=== PATIENT | male | born 1975 | race African-American/Black ===

== ENCOUNTER 2018-01-07 11:35 | Emergency (ER) | payer OTHER, SELFPAY ==
[2018-01-07] MEDS ORDERED: Ketorolac Tromethamine 30 MG/ML VIAL ONE (12:15)
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
== END 2018-01-07 13:02 | disposition home or self-care (01) ==
LOC: ERS 11:35
DX: S43.401A Unspecified sprain of right shoulder joint, initial encounter (principal); S20.211A Contusion of right front wall of thorax, initial encounter; Z87.891 Personal history of nicotine dependence; V49.9XXA Car occupant (driver) (passenger) injured in unspecified traffic accident, initial encounter
CPT/HCPCS: 71046; 96372; J1885

== ENCOUNTER 2019-07-19 04:04 | Emergency (ER) | payer SELFPAY | END 2019-07-19 05:15 | disposition home or self-care (01) | LOC: ERS 04:04 | DX: G93.2 Benign intracranial hypertension (principal); K08.89 Other specified disorders of teeth and supporting structures; Z87.891 Personal history of nicotine dependence; Z79.899 Other long term (current) drug therapy | CPT/HCPCS: 99283 ==

== ENCOUNTER 2019-11-07 09:30 | Emergency (ER) | payer SELFPAY ==
[2019-11-07 10:27] LABS: #Basophils 0.1 thou/uL (0.0-0.2); #Eosinphils 0.1 thou/uL (0.0-0.7); #Lymphocytes 2.5 thou/uL (1.20-3.40); #Monocytes 0.5 thou/uL (0.11-0.59); #Neutrophils 4.2 thou/uL (1.40-6.50); %Eosinophils 1.9 % (0.0-10.0); %Lymphocytes 33.9 % (21.0-51.0); %Monocytes 6.5 % (0.0-10.0); %Neutrophils 56.6 % (42.0-75.0); Hemoglobin 14.3 g/dL (14.0-18.0); Mean Corpuscular HGB CONC 31.7 g/dL (32.0-36.0); Mean Corpuscular Hemoglobin 27.4 pg (27.0-31.0); Mean Corpuscular Volume 86.5 fL (78.0-98.0); Mean Platelet Volume 6.4 fL (7.4-10.4); Platelet Count 478 thou/uL (130-400); RBC Distribution Width 14.4 % (11.5-14.5); Red Blood Cell (RBC) Count 5.21 mill/uL (4.70-6.10); White Blood Cell (WBC) Count 7.3 thou/uL (4.8-10.8)
--- NOTE | 2019-11-07 10:38 | RAD ---
EXAM: CHEST ONE VIEW HISTORY: Lightheadedness and hypertension. COMPARISON: 01/07/2018 FINDINGS: Cardiac silhouette is magnified by projection but stable in size. Pulmonary vasculature is within nor mal limits The lungs are clear. The osseous structures are intact. Chest is stable compared to prior study. IMPRESSION: No acute cardiopulmonary process.
[2019-11-07 10:58] LABS: ALT (SGPT) 24 U/L (8-55); AST (SGOT) 20 U/L (5-34); Albumin 4.3 g/dL (3.5-5.0); Alkaline Phosphatase 107 U/L (40-110); Anion Gap 16 mmol/L (10-20); BUN (Urea Nitrogen) 8 mg/dL (8.9-20.6); Bilirubin, Total 0.4 mg/dL (0.2-1.2); Calc. Creatinine Clearance 0 mL/min (70-130); Calcium 10.2 mg/dL (7.8-10.44); Carbon Dioxide 30 mmol/L (22-29); Chloride 98 mmol/L (98-107); Estimated GFR-MDRD Greater than 90; Globulin 4.5 g/dL (2.4-3.5); Glucose 141 mg/dL (70-105); Potassium 4.9 mmol/L (3.5-5.1); Protein, Total 8.8 g/dL (6.0-8.3); Sodium 139 mmol/L (136-145)
[2019-11-07] MEDS ORDERED: Furosemide 40 MG TAB ONE (11:30)
[2019-11-07] MEDS ORDERED: Metoprolol Tartrate 25 MG TAB ONE (11:30)
== END 2019-11-07 11:35 | disposition home or self-care (01) ==
LOC: ERS 09:30
DX: I10 Essential (primary) hypertension (principal); Z87.891 Personal history of nicotine dependence; Z79.899 Other long term (current) drug therapy
CPT/HCPCS: 36415; 71045; 80053; 84484; 85025; 93005

== ENCOUNTER 2022-09-05 16:46 | Emergency (ER) | payer BC | END 2022-09-05 18:48 | disposition home or self-care (01) | LOC: ERS 16:46 | DX: S43.402A Unspecified sprain of left shoulder joint, initial encounter (principal); I10 Essential (primary) hypertension; W19.XXXA Unspecified fall, initial encounter; Z87.891 Personal history of nicotine dependence ==

== ENCOUNTER 2022-11-07 08:13 | Outpatient (CLI) | payer BC, OTHER | END 2022-11-07 08:14 | disposition home or self-care (01) | LOC: TBSIIMAG 08:13 | PROVIDERS: ATTEND Neurological Surgery | DX: M48.02 Spinal stenosis, cervical region (principal); Z98.890 Other specified postprocedural states | CPT/HCPCS: 72040 ==

== ENCOUNTER 2022-12-05 19:48 | Emergency (ER) | payer OTHER, BC ==
[2022-12-05] MEDS ORDERED: Ketorolac Tromethamine 30 MG/ML VIAL ONE ×2 (21:26→21:27)
[2022-12-05] MEDS ORDERED: Bacitracin 1 PK ONE (21:27)
== END 2022-12-05 23:43 | disposition home or self-care (01) ==
LOC: ERS 19:48
DX: S39.012A Strain of muscle, fascia and tendon of lower back, initial encounter (principal); M25.562 Pain in left knee; I10 Essential (primary) hypertension; V86.95XA Unspecified occupant of 3- or 4- wheeled all-terrain vehicle (ATV) injured in nontraffic accident, initial encounter; Z87.891 Personal history of nicotine dependence
CPT/HCPCS: 72192; 96372; J1885

== ENCOUNTER 2023-03-06 10:20 | Inpatient (IN) | payer BC, OTHER ==
[2023-03-06 10:58] LABS: #Eosinphils 0.1 thou/uL (0.0-0.7); #Monocytes 0.4 thou/uL (0.11-0.59); #Neutrophils 2.6 thou/uL (1.40-6.50); %Basophils 0.9 % (0.0-1.0); %Eosinophils 2.6 % (0.0-10.0); %Lymphocytes 32.2 % (21.0-51.0); %Monocytes 8.6 % (0.0-10.0); %Neutrophils 55.5 % (42.0-75.0); Hemoglobin 14.2 g/dL (14.0-18.0); Mean Corpuscular HGB CONC 32.3 g/dL (32.0-36.0); Mean Corpuscular Hemoglobin 28.7 pg (27.0-31.0); Mean Corpuscular Volume 89.1 fl (78.0-98.0); Mean Platelet Volume 10.2 fL (7.4-10.4); Platelet Count 467 10x3/uL (130-400); RBC Distribution Width 13.8 % (11.5-14.5); Red Blood Cell (RBC) Count 4.94 mill/uL (4.70-6.10); White Blood Cell (WBC) Count 4.7 10x3/uL (4.8-10.8)
[2023-03-06 11:27] LABS: ALT (SGPT) 25 U/L (8-55); AST (SGOT) 25 U/L (5-34); Albumin 3.9 g/dL (3.5-5.0); Alkaline Phosphatase 84 U/L (40-110); Anion Gap 14 mmol/L (10-20); BUN (Urea Nitrogen) 9 mg/dL (8.9-20.6); Bilirubin, Total 1.2 mg/dL (0.2-1.2); Calc. Creatinine Clearance 0 mL/min (70-130); Calcium 9.2 mg/dL (7.8-10.44); Carbon Dioxide 26 mmol/L (22-29); Chloride 103 mmol/L (98-107); Estimated GFR 86; Globulin 3.8 g/dL (2.4-3.5); Glucose 75 mg/dL (70-105); Potassium 3.5 mmol/L (3.5-5.1); Protein, Total 7.7 g/dL (6.0-8.3); Sodium 139 mmol/L (136-145)
[2023-03-06 13:39] LABS: Bacteria/HPF None Seen HPF (None Seen); Bilirubin Negative (Negative); Blood, Urine Negative (Negative); CAUTI Indications for Culture Alt mental st,lethar; Clarity Turbid (Clear); Glucose, Urine (Dipstick) Normal (Negative); Ketone, Urine 40 mg/dL (Negative); Leukocyte 500 Leu/uL (Negative); Nitrite Negative (Negative); Protein, Urine (Dipstick) 20 mg/dL (Neg-Trace); Specific Gravity, Urine 1.012 (1.002-1.036); Sperm/HPF 4+ HPF (None Seen); Squamous Epithelial 0-3 HPF (0-3); WBC/HPF Greater than 50 HPF (0-3)
[2023-03-06 13:40] LABS: Urine Culture Reflex Yes Yes
[2023-03-06] MEDS ORDERED: Calcium Carbonate 500 MG ChewTAB PO PRN (14:43)
[2023-03-06] MEDS ORDERED: NS 0.9% w/ 20 MEQ KCL 1,000 ML/1,000 ML BAG IV SCH ×2 (15:00→17:08)
[2023-03-06] MEDS ORDERED: Aspirin Chewable 81 MG TAB ONE (15:10)
[2023-03-06] MEDS ORDERED: cefTRIAXone (ROCEPHIN) 2 GM VIAL ONE (15:10)
[2023-03-06] MEDS ORDERED: Aspirin 81 mg Enteric Coated Tablet PO SCH (15:15)
[2023-03-06 15:51] LABS: Troponin I Less than 0.010 ng/mL (< 0.028)
[2023-03-06] MEDS ORDERED: hydrALAZINE 20 MG/ML VIAL SLOW IVP PRN (17:21)
[2023-03-06 19:09] LABS: Troponin I Less than 0.010 ng/mL (< 0.028)
[2023-03-06 19:58] VITALS: BMI 41.0
[2023-03-06 20:10] LABS: Chlam.trachomatis by PCR,Urine Not Detected (NotDetected); GC N.gonorrhoeae PCR,UrineVOID Not Detected (NotDetected)
[2023-03-06] MEDS: cefTRIAXone\\ROCEPHIN 1 GM in Sodium Chloride 0.9% 100 ML IVPB SCH (20:35)
[2023-03-06] MEDS: Thiamine 100 MG TAB PO SCH (20:38)
[2023-03-06] MEDS: Folic Acid 1 MG TAB PO SCH (20:38)
[2023-03-06] MEDS: Multivit, Therapeutic 1 TAB PO SCH (20:38)
[2023-03-06] MEDS: Heparin 5,000 UNITS/ML VIAL SC SCH (20:39)
[2023-03-06] MEDS: Atorvastatin Calcium 40 MG TAB PO SCH (20:39)
[2023-03-06] MEDS: Famotidine 20 MG TAB PO SCH (20:39)
[2023-03-06] MEDS: Acetaminophen 325 MG TAB PO PRN (20:40)
[2023-03-06] MEDS ORDERED: Heparin 5,000 UNITS/ML VIAL SC SCH (21:00)
[2023-03-06] MEDS ORDERED: Ketorolac Tromethamine 30 MG/ML VIAL IVP SCH (23:45)
[2023-03-07 05:22] LABS: Anion Gap 12 mmol/L (10-20); BUN (Urea Nitrogen) 10 mg/dL (8.9-20.6); Calc. Creatinine Clearance 248 mL/min (70-130); Calcium 8.2 mg/dL (7.8-10.44); Carbon Dioxide 26 mmol/L (22-29); Cardiac Risk 5.6 (Less than 4.5); Chloride 106 mmol/L (98-107); Cholesterol 163 mg/dl (< 200 Desired); Estimated GFR 113; Glucose 88 mg/dL (70-105); HDL Cholesterol 29 mg/dL (>60 Neg Risk); LDL Cholesterol, Calculated 121 mg/dL; Magnesium 1.7 mg/dL (1.6-2.6); Potassium 3.5 mmol/L (3.5-5.1); Sodium 140 mmol/L (136-145); Triglycerides 64 mg/dL (Less than 150)
[2023-03-07] MEDS: Famotidine 20 MG TAB PO SCH ×2 (08:56→20:26)
[2023-03-07] MEDS: Heparin 5,000 UNITS/ML VIAL SC SCH ×2 (08:57→15:23)
[2023-03-07] MEDS ORDERED: Aspirin 81 mg Enteric Coated Tablet PO SCH (09:00)
[2023-03-07] MEDS: Dexamethasone 4 mg/ml Vial SLOW IVP SCH ×3 (11:33→23:59)
[2023-03-07] MEDS: cefTRIAXone\\ROCEPHIN 1 GM in Sodium Chloride 0.9% 100 ML IVPB SCH (15:22)
[2023-03-07] MEDS: Sodium Chloride 0.9% 1,000 ML IV SCH (17:18)
[2023-03-07] MEDS: Atorvastatin Calcium 40 MG TAB PO SCH (20:26)
[2023-03-07] MEDS: Acetaminophen 325 MG TAB PO PRN (20:26)
[2023-03-07] MEDS: Folic Acid 1 MG TAB PO SCH (20:26)
[2023-03-07] MEDS: Thiamine 100 MG TAB PO SCH (20:26)
[2023-03-07] MEDS: Multivit, Therapeutic 1 TAB PO SCH (20:31)
[2023-03-07] MEDS: Midodrine HCl 5 MG TAB PO SCH (23:59)
[2023-03-08 05:21] LABS: #Monocytes 0.1 thou/uL (0.11-0.59); #Neutrophils 5.7 thou/uL (1.40-6.50); %Basophils 0.2 % (0.0-1.0); %Lymphocytes 11.3 % (21.0-51.0); %Neutrophils 85.9 % (42.0-75.0); Hemoglobin 13.6 g/dL (14.0-18.0); Mean Corpuscular HGB CONC 31.5 g/dL (32.0-36.0); Mean Corpuscular Hemoglobin 28.8 pg (27.0-31.0); Mean Corpuscular Volume 91.5 fl (78.0-98.0); Mean Platelet Volume 8.6 fL (7.4-10.4); Platelet Count 414 10x3/uL (130-400); RBC Distribution Width 13.6 % (11.5-14.5); Red Blood Cell (RBC) Count 4.72 mill/uL (4.70-6.10); White Blood Cell (WBC) Count 6.6 10x3/uL (4.8-10.8)
[2023-03-08 05:44] LABS: Anion Gap 14 mmol/L (10-20); BUN (Urea Nitrogen) 7 mg/dL (8.9-20.6); Calc. Creatinine Clearance 219 mL/min (70-130); Calcium 8.9 mg/dL (7.8-10.44); Carbon Dioxide 25 mmol/L (22-29); Chloride 105 mmol/L (98-107); Estimated GFR 109; Glucose 131 mg/dL (70-105); Potassium 3.8 mmol/L (3.5-5.1); Sodium 140 mmol/L (136-145)
[2023-03-08] MEDS: Dexamethasone 4 mg/ml Vial SLOW IVP SCH (06:05)
[2023-03-08] MEDS: Acetaminophen 325 MG TAB PO PRN (06:05)
[2023-03-08] MEDS: Famotidine 20 MG TAB PO SCH (08:43)
[2023-03-08] MEDS: Heparin 5,000 UNITS/ML VIAL SC SCH ×2 (08:43)
[2023-03-08] MEDS: Sodium Chloride 0.9% 1,000 ML IV SCH (08:45)
[2023-03-08] MEDS: Midodrine HCl 5 MG TAB PO SCH (08:45)
[2023-03-08 12:02] VITALS: TEMP 97.5
[2023-03-08] MEDS ORDERED: hydrALAZINE 25 MG TAB PO SCH (13:15)
[2023-03-08 14:51] VITALS: BP 132/80
== END 2023-03-08 15:10 | disposition home or self-care (01) | DRG 56 ==
LOC: ERS 10:20 → 2SE 14:58 → NEURO 16:07 → 2SE 16:09 → OBSVTOIN 03-07 16:37
PROVIDERS: ADMIT Internal Medicine; ATTEND Hospitalist
DX: G95.0 Syringomyelia and syringobulbia (principal); G93.5 Compression of brain; N39.0 Urinary tract infection, site not specified; Z68.42 Body mass index [BMI] 45.0-49.9, adult; G95.20 Unspecified cord compression; I95.1 Orthostatic hypotension; I10 Essential (primary) hypertension; E66.01 Morbid (severe) obesity due to excess calories; Z79.899 Other long term (current) drug therapy; Z98.890 Other specified postprocedural states
CPT/HCPCS: 36415; 70450; 70551; 71045; 80048; 80053; 80061; 81001; 82550; 82607; 83735; 84484; 85025; 87086; 87491; 87591; 93005; 93880; 95712; 95819; 95957; 96361; 96374; J0696; J1100; J1644; J1885; J3480; J3490

== ENCOUNTER 2023-04-02 20:37 | Emergency (ER) | payer BC, OTHER ==
[2023-04-02 21:20] LABS: #Eosinphils 0.2 thou/uL (0.0-0.7); #Monocytes 0.5 thou/uL (0.11-0.59); #Neutrophils 3.7 thou/uL (1.40-6.50); %Basophils 0.7 % (0.0-1.0); %Eosinophils 2.7 % (0.0-10.0); %Lymphocytes 24.7 % (21.0-51.0); %Monocytes 8.7 % (0.0-10.0); %Neutrophils 62.9 % (42.0-75.0); Hematocrit 39.9 % (42.0-52.0); Hemoglobin 12.7 g/dL (14.0-18.0); Mean Corpuscular HGB CONC 31.8 g/dL (32.0-36.0); Mean Corpuscular Hemoglobin 28.4 pg (27.0-31.0); Mean Corpuscular Volume 89.3 fl (78.0-98.0); Mean Platelet Volume 8.4 fL (7.4-10.4); Platelet Count 360 10x3/uL (130-400); RBC Distribution Width 14.2 % (11.5-14.5); Red Blood Cell (RBC) Count 4.47 mill/uL (4.70-6.10); White Blood Cell (WBC) Count 5.8 10x3/uL (4.8-10.8)
[2023-04-02] MEDS ORDERED: Acetaminophen 500 MG TAB ONE (21:21)
[2023-04-02 21:44] LABS: Acetaminophen Less than 10 mcg/mL (10.0-30.0); Alcohol 24.9 mg/dL (Less than 10); Salicylate Less than 8.0 mg/dL (15.0-30.0)
[2023-04-02 21:45] LABS: ALT (SGPT) 25 U/L (8-55); AST (SGOT) 15 U/L (5-34); Albumin 3.1 g/dL (3.5-5.0); Alkaline Phosphatase 82 U/L (40-110); Anion Gap 12 mmol/L (10-20); BUN (Urea Nitrogen) 9 mg/dL (8.9-20.6); Bilirubin, Total 0.3 mg/dL (0.2-1.2); Calc. Creatinine Clearance 0 mL/min (70-130); Calcium 8.5 mg/dL (7.8-10.44); Carbon Dioxide 24 mmol/L (22-29); Chloride 106 mmol/L (98-107); Estimated GFR 109; Globulin 3.4 g/dL (2.4-3.5); Glucose 75 mg/dL (70-105); Potassium 3.8 mmol/L (3.5-5.1); Protein, Total 6.5 g/dL (6.0-8.3); Sodium 138 mmol/L (136-145)
== END 2023-04-02 22:18 | disposition home or self-care (01) ==
LOC: ERS 20:37
DX: F10.129 Alcohol abuse with intoxication, unspecified (principal); F12.929 Cannabis use, unspecified with intoxication, unspecified; R55 Syncope and collapse; I10 Essential (primary) hypertension; F17.200 Nicotine dependence, unspecified, uncomplicated; Y90.1 Blood alcohol level of 20-39 mg/100 ml
CPT/HCPCS: 36415; 80053; 80307; 85025; 99284